=== PATIENT | male | born 1985 | race Caucasian/White ===

== ENCOUNTER 2017-11-24 16:32 | Emergency (ER) | payer BC, OTHER ==
[~2017-11-24] VITALS: Ht 172.7 cm; Wt 126.8 kg
[~2017-11-24 16:32] MED LIST: ONDA4TAB12 PO
[2017-11-24 16:44] VITALS: BP 167/95
[2017-11-24] MEDS ORDERED: HYDROcodone/acetaminophen 10/325mg tab PO ONE (17:35)
[2017-11-24] MEDS ORDERED: CEPH-572 PO (18:07)
== END 2017-11-24 19:02 | disposition home or self-care (01) ==
LOC: ER 16:33
DX: R10.33 Periumbilical pain (principal); R00.2 Palpitations; R19.8 Other specified symptoms and signs involving the digestive system and abdomen; Z90.49 Acquired absence of other specified parts of digestive tract; Z79.2 Long term (current) use of antibiotics; Z79.899 Other long term (current) drug therapy
CPT/HCPCS: 76705; 76882; 99284